=== PATIENT | male | born 1985 | race African-American/Black ===

== ENCOUNTER 2022-07-14 11:02 | Emergency (ER) | payer MEDICAID, OTHER ==
[~2022-07-14] VITALS: Ht 175.3 cm; Wt 91.9 kg
[2022-07-14 11:37] VITALS: BP 134/82
[2022-07-14] MEDS ORDERED: AZITTAB PO (13:49)
[2022-07-14] MEDS ORDERED: CYCL-839 PO (13:49)
== END 2022-07-14 14:27 | disposition home or self-care (01) ==
LOC: ER 11:02
DX: S16.1XXA Strain of muscle, fascia and tendon at neck level, initial encounter (principal); S13.4XXA Sprain of ligaments of cervical spine, initial encounter; S29.012A Strain of muscle and tendon of back wall of thorax, initial encounter; S39.012A Strain of muscle, fascia and tendon of lower back, initial encounter; Z88.6 Allergy status to analgesic agent; V43.52XA Car driver injured in collision with other type car in traffic accident, initial encounter; Y93.89 Activity, other specified; Y92.89 Other specified places as the place of occurrence of the external cause; Y99.8 Other external cause status

== ENCOUNTER 2022-11-10 00:28 | Emergency (ER) | payer MEDICAID ==
[~2022-11-10] VITALS: Ht 175.3 cm; Wt 86.0 kg
[~2022-11-10 00:28] MED LIST: AZITTAB PO; CYCL-839 PO
[2022-11-10 01:14] LABS: Basophils # (auto) 0.1 10 ^3/uL (0-0.2); Eosinophils # (auto) 0.1 10 ^3/uL (0-0.8); Eosinophils % (auto) 0.7 % (0.0-7.0); Hematocrit 43.4 % (41.0-53.0); Hemoglobin 14.2 g/dL (13.5-17.5); Lymphocytes % (auto) 19.4 % (10.0-50.0); Mean Corpuscular Hgb Conc. 32.7 g/dL (32.0-36.0); Mean Corpuscular Volume 82.5 fL (80.0-100.0); Monocytes # (auto) 0.9 10 ^3/uL (0-1.3); Monocytes % (auto) 9.2 % (0.0-12.0); Neutrophils % (auto) 69.7 % (37.0-80.0); Nucleated Red Blood Cells % 0.1 %; Red Blood Cells 5.26 10^6/uL (4.5-5.90); Red Cell Distribution Width 15.8 % (11.8-14.3); White Blood Cell 10.1 10^3/uL (4.4-10.8)
[2022-11-10 01:26] LABS: INR 0.98 (0.9-1.15); Partial Thromboplastin Time 27.9 SEC (24.5-34.5); Prothrombin Time 10.3 sec (9.3-11.8)
[2022-11-10 01:29] LABS: Alanine Aminotransferase 37 U/L (7-40); Albumin 4.6 g/dL (3.2-4.8); Alkaline Phosphatase 58 U/L (46-116); Anion Gap 6.2 (5-15); Aspartate Aminotransferase 15 U/L (13-40); BUN/Creatinine Ratio 6.3 (10.0-20.0); Bilirubin, Total 1.1 mg/dL (0.2-1.0); Blood Urea Nitrogen 8 mg/dL (9-23); Calcium 9.6 mg/dL (8.7-10.4); Carbon Dioxide 26.8 mmol/L (20-30); Chloride 103 mmol/L (98-107); Glucose 96 mg/dL (74-106); Magnesium 2.1 mg/dL (1.6-2.6); Potassium 3.7 mmol/L (3.5-5.1); Sodium 136 mmol/L (136-145); Total Protein 7.6 g/dL (5.7-8.2)
[2022-11-10] MEDS ORDERED: KETOROLAC TROMETH 60MG/2ML VIAL IM ONE (01:45)
[2022-11-10 03:05] VITALS: BP 117/81; PULSE 71; RESP 15; TEMP 98.3; O2SAT 95
== END 2022-11-10 03:14 | disposition home or self-care (01) ==
LOC: ER 00:28
DX: R07.89 Other chest pain (principal); M54.9 Dorsalgia, unspecified; F41.9 Anxiety disorder, unspecified; R06.02 Shortness of breath; Z88.6 Allergy status to analgesic agent; Z79.899 Other long term (current) drug therapy
CPT/HCPCS: 36415; 71045; 80053; 83735; 83880; 84443; 84484; 85025; 85610; 85730; 93005

== ENCOUNTER 2022-11-16 22:16 | Emergency (ER) | payer MEDICAID ==
[~2022-11-16] VITALS: Ht 175.3 cm; Wt 91.0 kg
[2022-11-16 22:16] VITALS: BP 122/80; PULSE 60; RESP 18; O2SAT 97
== END 2022-11-17 02:46 | disposition left against medical advice (07) ==
LOC: ER 22:16
DX: T14.8XXA Other injury of unspecified body region, initial encounter (principal); Z53.21 Procedure and treatment not carried out due to patient leaving prior to being seen by health care provider; W57.XXXA Bitten or stung by nonvenomous insect and other nonvenomous arthropods, initial encounter; Y93.89 Activity, other specified; Y92.89 Other specified places as the place of occurrence of the external cause; Y99.8 Other external cause status

== ENCOUNTER 2023-12-10 02:16 | Inpatient (IN) | payer MEDICAID ==
[~2023-12-10] VITALS: Ht 175.3 cm; Wt 100.6 kg
[2023-12-10 03:32] LABS: Urine Bacteria None Seen /hpf (None Seen)
[2023-12-10] MEDS: ONDANSETRON HCL 4 MG/2 ML VIAL IV ONE (03:38)
[2023-12-10] MEDS: MORPHINE SULFATE 4 MG/ML SYR/VIAL IV ONE ×2 (03:39→05:52)
[2023-12-10] MEDS: SODIUM CHLORIDE 0.9% 1,000 ML IV ONE (03:39)
[2023-12-10 03:44] LABS: Basophils # (auto) 0.1 10 ^3/uL (0-0.2); Basophils % (auto) 0.5 % (0.0-2.0); Eosinophils # (auto) 0 10 ^3/uL (0-0.8); Eosinophils % (auto) 0.1 % (0.0-7.0); Hematocrit 47.4 % (41.0-53.0); Lymphocytes # (auto) 1.7 10 ^3/uL (0.4-5.4); Lymphocytes % (auto) 11.6 % (10.0-50.0); Mean Corpuscular Hemoglobin 27.3 pg (28.0-32.0); Mean Corpuscular Hgb Conc. 33.6 g/dL (32.0-36.0); Mean Corpuscular Volume 81.2 fL (80.0-100.0); Monocytes # (auto) 0.6 10 ^3/uL (0-1.3); Monocytes % (auto) 4.5 % (0.0-12.0); Neutrophils % (auto) 83.3 % (37.0-80.0); Nucleated Red Blood Cells % 0.1 %; Platelet Count (auto) 227 10^3/uL (140-450); Red Blood Cells 5.84 10^6/uL (4.5-5.90); Red Cell Distribution Width 14.7 % (11.8-14.3); White Blood Cell 14.3 10^3/uL (4.4-10.8)
[2023-12-10 03:56] LABS: Alanine Aminotransferase 24 U/L (7-40); Albumin 4.8 g/dL (3.2-4.8); Alkaline Phosphatase 60 U/L (46-116); Anion Gap 5 (5-15); Aspartate Aminotransferase 19 U/L (13-40); BUN/Creatinine Ratio 7.4 (10.0-20.0); Blood Urea Nitrogen 10 mg/dL (9-23); Calcium 9.9 mg/dL (8.7-10.4); Carbon Dioxide 27 mmol/L (20-31); Chloride 104 mmol/L (98-107); Glucose 118 mg/dL (74-106); Lipase 39 U/L (12-53); Potassium 3.8 mmol/L (3.5-5.1); Sodium 136 mmol/L (136-145)
[2023-12-10] MEDS: IOHEXOL 300 MG/ML 100ML BOTTLE IJ ONE (03:56)
[2023-12-10 03:57] LABS: Total Protein 7.7 g/dL (5.7-8.2)
[2023-12-10 04:09] LABS: Urine Blood Negative /uL (Negative); Urine Clarity Clear (Clear); Urine Color Yellow (Yellow); Urine Mucus FEW (None Seen); Urine Protein, UAD TRACE (Negative); Urine Specific Gravity 1.032 (1.001-1.035); Urine Urobilinogen Normal (Negative); Urine WBC 1 /hpf (0 - 3); Urine pH 6.5 (5.0-9.0)
[2023-12-10 04:13] LABS: Bilirubin, Total 1.1 mg/dL (0.2-1.0)
[2023-12-10 06:57] VITALS: PULSE 78; RESP 15; O2SAT 97
[2023-12-10] MEDS: ceFAZolin 1GM/50ML 50 ML IV ONE (07:02)
[2023-12-10 07:30] VITALS: PULSE 87; RESP 15; O2SAT 94
[2023-12-10] MEDS: metroNIDAZOLE 500MG/100ML 100 ML IV ONE (08:41)
[2023-12-10] MEDS: diphenhdrAMINE-ZINC ACETATE 1 APPLIC APPL TOP ONE (10:32)
[2023-12-10] MEDS: SODIUM CHLORIDE 0.9% 1,000 ML IV SCH (11:15)
[2023-12-10] MEDS ORDERED: DOCUSATE SOD 100 MG CAP PO PRN (11:15)
[2023-12-10] MEDS ORDERED: NITROGLYCERIN 0.4 MG SL TAB SL PRN (11:15)
[2023-12-10] MEDS: PIPERACILLIN-TAZOB 3.375GM 100 ML IV ONE (12:19)
[2023-12-10] MEDS: ONDANSETRON HCL 4 MG/2 ML VIAL IV PRN (12:20)
[2023-12-10] MEDS: MORPHINE SULFATE INJ 2 MG/ml SYRG IV PRN (12:21)
[2023-12-10 12:39] LABS: INR 1.01 (0.9-1.15); Prothrombin Time 10.7 sec (9.3-11.8)
[2023-12-10 13:03] LABS: Partial Thromboplastin Time 27.6 SEC (24.5-34.5); Prothrombin Time 10.6 sec (9.3-11.8)
[2023-12-10] MEDS: D5W/SOD CHL 0.45%/KCL 20MEQ 1,000 ML IV SCH (13:09)
[2023-12-10 14:07] VITALS: PULSE 61; RESP 16; O2SAT 97
[2023-12-10] MEDS: MORPHINE SULFATE INJ 2 MG/ml SYRG IV ONE (15:00)
[2023-12-10 17:00] VITALS: BP 132/72; PULSE 61; RESP 18; TEMP 98.1; O2SAT 95
[2023-12-10] MEDS: PIPERACILLIN-TAZOB 3.375GM 100 ML IV SCH (18:00)
[2023-12-10] MEDS: MORPHINE SULFATE 4 MG/ML SYR/VIAL IV PRN (20:20)
[2023-12-10 21:39] VITALS: BP 122/72; PULSE 63; RESP 18; TEMP 97.8; O2SAT 96
[2023-12-11] VITALS (7 sets, daily range): BP systolic 101–131; BP diastolic 66–84; PULSE 62–84; RESP 16–20; TEMP 97.9–98.1; O2SAT 91–98
[2023-12-11 07:22] LABS: Basophils # (auto) 0 10 ^3/uL (0-0.2); Basophils % (auto) 0.2 % (0.0-2.0); Eosinophils # (auto) 0.1 10 ^3/uL (0-0.8); Eosinophils % (auto) 1.6 % (0.0-7.0); Hematocrit 48.1 % (41.0-53.0); Hemoglobin 16.1 g/dL (13.5-17.5); Lymphocytes # (auto) 1.7 10 ^3/uL (0.4-5.4); Lymphocytes % (auto) 23.1 % (10.0-50.0); Mean Corpuscular Hemoglobin 27.4 pg (28.0-32.0); Mean Corpuscular Hgb Conc. 33.5 g/dL (32.0-36.0); Monocytes # (auto) 0.5 10 ^3/uL (0-1.3); Monocytes % (auto) 6.6 % (0.0-12.0); Neutrophils # (auto) 5.1 10 ^3/uL (1.6-8.6); Neutrophils % (auto) 68.5 % (37.0-80.0); Nucleated Red Blood Cells % 0.1 %; Platelet Count (auto) 210 10^3/uL (140-450); Red Blood Cells 5.86 10^6/uL (4.5-5.90); White Blood Cell 7.4 10^3/uL (4.4-10.8)
[2023-12-11 07:39] LABS: Alanine Aminotransferase 17 U/L (7-40); Albumin 4.2 g/dL (3.2-4.8); Alkaline Phosphatase 54 U/L (46-116); Anion Gap 6 (5-15); Aspartate Aminotransferase 14 U/L (13-40); Bilirubin, Total 1.5 mg/dL (0.2-1.0); Calcium 9.5 mg/dL (8.7-10.4); Carbon Dioxide 29 mmol/L (20-31); Chloride 104 mmol/L (98-107); Glucose 106 mg/dL (74-106); Sodium 139 mmol/L (136-145); Total Protein 6.8 g/dL (5.7-8.2)
[2023-12-11 07:40] LABS: BUN/Creatinine Ratio 3.5 (10.0-20.0); Blood Urea Nitrogen < 5 mg/dL (9-23)
[2023-12-11] MEDS: CELECOXIB 100 MG CAP PO ONE (08:45)
[2023-12-11] MEDS: GABAPENTIN 400 MG CAP PO ONE (08:45)
[2023-12-11] MEDS: ACETAMINOPHEN IV 1000 MG/100ML (10MG/ML) IV ONE (08:45)
[2023-12-11] MEDS ORDERED: LIDOCAINE HCL 2% TOP JELLY 5ML TOP ONE (08:47)
[2023-12-11] MEDS ORDERED: SUGAMMADEX 200mg/2ml Vial (100MG/ML) IV ONE (08:47)
[2023-12-11] MEDS ORDERED: ONDANSETRON HCL 4 MG/2 ML VIAL ONE (08:47)
[2023-12-11] MEDS ORDERED: GLYCOPYRROLATE 0.2 MG/ML 1ML VIAL ONE (08:47)
[2023-12-11] MEDS ORDERED: ROCURONIUM 10MG/ML 10ML VIAL IV ONE (08:47)
[2023-12-11] MEDS ORDERED: DexAMETHasone SOD PHOS 10MG/1ML VIAL INJ ONE (08:47)
[2023-12-11] MEDS ORDERED: KETOROLAC TROMETH 30 MG/ML 1ML VIAL ONE (08:47)
[2023-12-11] MEDS ORDERED: LIDOCAINE 2% (LOCAL ANESTH.) PF 5ml SDV ONE (08:47)
[2023-12-11] MEDS ORDERED: PROPOFOL 10 MG/ML 20 ML IV ONE (08:47)
[2023-12-11] MEDS ORDERED: KETAMINE 50mg/ML 1ml syringe ONE (08:50)
[2023-12-11] MEDS ORDERED: fentaNYL CITRATE 100 MCG/2 ML VL ONE (08:50)
[2023-12-11] MEDS: metroNIDAZOLE 500MG/100ML 100 ML IV ONE (09:28)
[2023-12-11] MEDS: LIDOCAINE W/ EPINEPHRINE 1% 20ML VIAL ONE (09:51)
[2023-12-11] MEDS: BUPIVACAINE 0.25% INJ 50ML VIAL ONE (09:51)
[2023-12-11] MEDS ORDERED: ePHEDrine SULFATE 50 MG/ML AMP ONE (10:02)
[2023-12-11] MEDS ORDERED: ePHEDrine SULFATE 50 MG/ML AMP IV PRN (10:30)
[2023-12-11] MEDS ORDERED: NALOXONE HCL 0.4 MG/ML VIAL IV PRN (10:30)
[2023-12-11] MEDS ORDERED: hydrALAZINE HCL 20 MG/ML VL IV PRN (10:30)
[2023-12-11] MEDS ORDERED: FLUMAZENIL 0.1 MG/ML INJ 10ML MDV IV PRN (10:30)
[2023-12-11] MEDS ORDERED: oxyCODONE HCL 5MG TAB PO PRN (10:30)
[2023-12-11] MEDS ORDERED: ONDANSETRON HCL 4 MG/2 ML VIAL IV PRN (10:30)
[2023-12-11] MEDS ORDERED: HYDROmorphone HCL 2 MG/ML VL/or syr IV PRN ×2 (10:30)
[2023-12-11] MEDS: fentaNYL CITRATE 100 MCG/2 ML VL IV PRN (11:09)
[2023-12-11] MEDS: metroNIDAZOLE 500MG/100ML 100 ML IV SCH (14:09)
[2023-12-11] MEDS: D5W/SOD CHL 0.45%/KCL 20MEQ 1,000 ML IV SCH (14:09)
[2023-12-11] MEDS: PIPERACILLIN-TAZOB 3.375GM 100 ML IV SCH (15:16)
[2023-12-12] VITALS (7 sets, daily range): BP systolic 114–161; BP diastolic 59–90; PULSE 66–84; RESP 15–20; TEMP 97.9–98.2; O2SAT 95–97
[2023-12-12] MEDS: ACETAMINOPHEN/CODEINE#3 (300/30mg) TAB PO PRN (04:02)
[2023-12-12 07:05] LABS: Basophils # (auto) 0 10 ^3/uL (0-0.2); Basophils % (auto) 0.1 % (0.0-2.0); Eosinophils # (auto) 0 10 ^3/uL (0-0.8); Hematocrit 45.3 % (41.0-53.0); Lymphocytes # (auto) 1.2 10 ^3/uL (0.4-5.4); Lymphocytes % (auto) 10.9 % (10.0-50.0); Mean Corpuscular Hemoglobin 27.5 pg (28.0-32.0); Mean Corpuscular Hgb Conc. 33.2 g/dL (32.0-36.0); Mean Corpuscular Volume 82.8 fL (80.0-100.0); Monocytes # (auto) 0.7 10 ^3/uL (0-1.3); Monocytes % (auto) 6.5 % (0.0-12.0); Neutrophils # (auto) 9.2 10 ^3/uL (1.6-8.6); Neutrophils % (auto) 82.5 % (37.0-80.0); Nucleated Red Blood Cells % 0.2 %; Platelet Count (auto) 193 10^3/uL (140-450); Red Blood Cells 5.47 10^6/uL (4.5-5.90); Red Cell Distribution Width 14.3 % (11.8-14.3); White Blood Cell 11.1 10^3/uL (4.4-10.8)
[2023-12-12] MEDS: PANTOPRAZOLE 40 MG/10 ML VIAL INJ IV SCH (09:04)
[2023-12-12] MEDS: HYDROcodone-ACET 10/325MG TAB PO PRN (14:18)
[2023-12-13 01:00] VITALS: BP 117/53; PULSE 62; RESP 18; TEMP 97.9; O2SAT 98
[2023-12-13 05:00] VITALS: BP 130/74; PULSE 62; RESP 18; TEMP 98.3; O2SAT 95
[2023-12-13 08:00] VITALS: PULSE 68; RESP 17; O2SAT 96
[2023-12-13 09:00] VITALS: BP 135/74; PULSE 62; RESP 17; TEMP 98; O2SAT 98
[2023-12-13] MEDS ORDERED: LEVO500T91 PO (12:04)
[2023-12-13] MEDS ORDERED: METR-344 PO (12:04)
[2023-12-13] MEDS ORDERED: HYDR-4902 PO (12:04)
[2023-12-13 13:00] VITALS: BP 147/90; PULSE 76; RESP 18; TEMP 98.3; O2SAT 95
== END 2023-12-13 14:29 | disposition home or self-care (01) | DRG 710 ==
LOC: ER 02:16 → OVERFLOW 11:06 → WEST WING 13:58
PROVIDERS: ADMIT Nurse Practitioner Family; ATTEND Family Medicine
PROC: 0DTJ4ZZ Resection of Appendix, Percutaneous Endoscopic Approach (ICD-10-PCS; principal; 2023-12-11 09:33)
DX: A41.9 Sepsis, unspecified organism (principal); N17.9 Acute kidney failure, unspecified; K35.80 Unspecified acute appendicitis; F41.9 Anxiety disorder, unspecified; E86.0 Dehydration; Z88.6 Allergy status to analgesic agent
CPT/HCPCS: 36415; 74177; 80053; 81001; 83690; 85025; 85610; 85730; 86850; 86900; 86901; 96365; 96375; 99291; G0378; J0131; J1100; J1885; J2001; J2405; J2470; J2543; J2704; J3490

== ENCOUNTER 2024-08-08 20:09 | Emergency (ER) | payer MEDICAID, OTHER ==
[~2024-08-08] VITALS: Ht 175.3 cm; Wt 88.0 kg
[~2024-08-08 20:09] MED LIST changes: +HYDR-4902 PO; +LEVO500T91 PO; +METR-344 PO
[2024-08-08 20:50] VITALS: BP 127/70; PULSE 78; RESP 16; TEMP 97.7; O2SAT 96
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
--- NOTE | 2024-08-08 21:23 | DVH ---
CLINICAL INDICATION: lumbar back pain TECHNIQUE: 2 radiographic views of the lumbar spine were obtained. Comparison: None FINDINGS/IMPRESSION: 5 [id number] lumbar-type vertebrae. Normal alignment of the lumbar spine. Vertebral body height s are maintained. No evidence of acute traumatic fractures or spondylolisthesis. Multilevel mild deg enerative changes of the lumbar spine. Surgical clips are noted overlying the right lower abdominal q uadrant. Moderate amount of fecal material within the visualized colon.
--- NOTE | 2024-08-08 21:24 | DVH ---
CLINICAL INDICATION: thoracic back pain TECHNIQUE: 2 radiographic views of the thoracic spine were obtained. Comparison: None FINDINGS/IMPRESSION: There is no evidence of acute fracture or spondylolisthesis. The vertebral body heights are maintaine d. The visualized lungs are clear.
--- NOTE | 2024-08-08 21:26 | DVH ---
CLINICAL INDICATION: left sided jaw pain TECHNIQUE: 3 radiographic views of the facial bones were obtained. Comparison: None FINDINGS/IMPRESSION: There is no evidence of acute fracture . Right mandibular hardware is noted. The visualized paranasal sinuses and mastoids are clear. If symptoms persist, consider CT for further evaluation.
== END 2024-08-08 21:30 | disposition home or self-care (01) ==
LOC: ER 20:09
DX: S29.012A Strain of muscle and tendon of back wall of thorax, initial encounter (principal); S39.012A Strain of muscle, fascia and tendon of lower back, initial encounter; S00.83XA Contusion of other part of head, initial encounter; F41.9 Anxiety disorder, unspecified; Z88.6 Allergy status to analgesic agent; Z79.899 Other long term (current) drug therapy; Z98.890 Other specified postprocedural states; Z87.898 Personal history of other specified conditions; V49.9XXA Car occupant (driver) (passenger) injured in unspecified traffic accident, initial encounter; Y93.89 Activity, other specified; Y92.488 Other paved roadways as the place of occurrence of the external cause; Y99.8 Other external cause status
CPT/HCPCS: 70140; 72070; 72100